=== PATIENT | female | born 1990 | race Caucasian/White ===

== ENCOUNTER → 2016-11-08 | Outpatient (CLI) | payer OTHER | LOC: M WUC 13:15 | PROVIDERS: ATTEND Obstetrics & Gynecology Obstetrics | DX: N97.9 Female infertility, unspecified (principal) ==

== ENCOUNTER → 2017-03-17 | Outpatient (CLI) | payer OTHER ==
[2017-03-17 10:44] LABS: PROGESTERONE 18.5 NG/ML; PROLACTIN 8.7 NG/ML
[2017-03-17 10:45] LABS: FOLLICLE STIMULATING HORMONE 3.2 mIU/mL
== END ==
LOC: M WUC 08:10
PROVIDERS: ATTEND Obstetrics & Gynecology
DX: N97.9 Female infertility, unspecified (principal)

== ENCOUNTER → 2017-03-27 | Outpatient (CLI) | payer OTHER | LOC: M WUC 08:42 | PROVIDERS: ATTEND Obstetrics & Gynecology | DX: N97.9 Female infertility, unspecified (principal) ==

== ENCOUNTER → 2017-03-30 | Outpatient (CLI) | payer OTHER ==
--- NOTE | 2017-03-31 06:22 | REP ---
Clinical: Infertility . Technique: Transabdominal pelvic ultrasound followed by transvaginal examination for better evaluation of the endometrium and adnexa. Findings: Bladder is unremarkable and measures 13.8 x 8.4 x 10.9 cm . Bicornuate uterus measures 6.8 x 3.0 x 3.4 cm. The right and left endometrial complex both measures 3.0 mm thickness. No discrete uterine or endometrial abnormalities are appreciated. Bilateral ovaries are normal in appearance and and demonstrate multiple sub centimeter follicles. Right ovary measures 3.7 x 2.3 x 4.0 cm. Left ovary measures 4.1 x 2.2 x 3.4 cm. No pelvic fluid or adnexal mass lesion . Impression: 1. bicornuate uterus without further discrete abnormality. 2. Normal appearance of the bilateral ovaries with multiple bilateral sub centimeter follicles. Signed by Florentin Mccray MD 03/31/2017 06:14 A
== END ==
LOC: M RAD 10:22
PROVIDERS: ATTEND Obstetrics & Gynecology
DX: N97.9 Female infertility, unspecified (principal)

== ENCOUNTER → 2017-05-05 | Outpatient (CLI) | payer OTHER ==
[2017-05-05 17:15] LABS: PROGESTERONE 9.4 NG/ML
[2017-05-05 17:16] LABS: ESTRADIOL 102.2 PG/ML
--- NOTE | 2017-05-05 18:37 | REP ---
MRI abdomen without contrast: History: Congenital uterine anomaly. Technique: Axial and coronal imaging planes are utilized. Sequences include true FISP, turbo spin-echo, spin echo. MRI findings: There is no evidence of ascites. The liver and spleen are normal in size homogeneous in texture. The gallbladder is unremarkable. There is a moderate amount of stool and gas in the large bowel. No retroperitoneal mass or adenopathy is seen. A normal left kidney is seen. The right kidney is absent. There is evidence of compensatory enlargement of the left kidney which measures 13.1 cm in length. No hydronephrosis or mass is seen. No ascites seen. Impression: Unilateral left kidney with compensatory hypertrophy. Right kidney is absent. Signed by Maynor Lanier MD 05/06/2017 02:13 P
--- NOTE | 2017-05-09 09:44 | REP ---
Clinical: Evaluate for congenital uterine anomaly. Correlation: Hysterosalpingogram performed 12/20/2016. Technique: Noncontrast multiplanar T2 weighted sequences through the pelvis. 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 The visualized vaginal cuff and cervix appears normal. The relatively normal appearing left uterine horn measures approximately 7.9 x 3.9 x 3.3 cm with normal appearance the myometrium, junctional zone and endometrium. The noncommunicating horn in the right fabiano pelvis measures approximately 3.1 cm diameter and there may be a small amount of poorly definable myometrium extending to the midline and left uterine horn. Normal right ovary contains multiple small follicles measuring up to 8 mm diameter. Left ovary includes multiple follicles as well as 2.4 cm hemorrhagic cyst and dominant follicle measuring 1.5 cm diameter. No pelvic fluid or obvious mass lesion is appreciated. Visualized portions of the small and large bowel are unremarkable. Visualized musculoskeletal structures and vasculature appears relatively symmetric and normal. Impression: 1. 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 2. Relatively normal bilateral ovaries with 2.4 cm left hemorrhagic cyst and 1.4 cm left dominant follicle. Signed by Florentin Mccray MD 05/09/2017 09:35 A
== END ==
LOC: M LAB 16:10
PROVIDERS: ATTEND Obstetrics & Gynecology Reproductive Endocrinology
DX: N97.9 Female infertility, unspecified (principal)

== ENCOUNTER → 2017-06-17 | Outpatient (CLI) | payer OTHER ==
--- NOTE | 2017-06-17 09:32 | REP ---
TRANSVAGINAL PELVIC ULTRASOUND, FOLLICLE STUDY: Real-time sonographic evaluation of the pelvis performed utilizing transabdominal technique. The uterus has a bicornuate configuration. Right horn measures 3.4 x 2.8 x 2.8 cm. Left horn measures 6.9 x 2.5 x 3.6 cm. Right sided endometrium measures 6 mm and left 7 mm with no endometrial fluid collection. Right ovary measures 4.3 x 3.1 x 2.1 cm. There are multiple subcentimeter follicles seen. Left ovary measures 3.4 x 1.9 x 3.2 cm. There are multiple subcentimeter follicles seen in the left ovary. No follicles are seen in either ovary that are greater than 1 cm in maximum diameter. Signed by Renzo Evans MD 06/20/2017 09:45 A
[2017-06-17 09:47] LABS: HCG, SERUM QUANTITATIVE < 1.0 MIU/ML
[2017-06-17 10:38] LABS: ESTRADIOL 51.1 PG/ML
== END ==
LOC: M RAD 07:51 → M LAB 07:51
PROVIDERS: ATTEND Obstetrics & Gynecology Reproductive Endocrinology
DX: N97.9 Female infertility, unspecified (principal)

== ENCOUNTER → 2017-07-14 | Outpatient (CLI) | payer OTHER ==
--- NOTE | 2017-07-14 08:27 | REP ---
Clinical: Infertility. Comparison: 06/27/2017. Technique: Evans scale transvaginal ultrasound examination. 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 Uterus measures 7.2 x 3.2 x 4.2 cm and the endometrial complex measures 6.3 mm thickness trace endocervical fluid noted. The noncommunicating right cornua measures approximately 3.9 x 3.9 x 3.5 cm without discernible endometrial stripe. Right ovary measures 4.3 x 3.0 x 3.9 cm and includes 17 mm hemorrhagic follicle and approximately 33 sub centimeter follicles. Left ovary measures 5.1 x 2.0 x 3.1 cm and includes 11 mm follicle and approximately 33 sub centimeter follicles. Impression: Predominately sub centimeter follicles as noted above. Signed by Florentin Mccray MD 07/14/2017 08:19 A
[2017-07-14 09:12] LABS: HCG, SERUM QUANTITATIVE < 1.0 MIU/ML
[2017-07-14 10:31] LABS: ESTRADIOL 93.5 PG/ML
== END ==
LOC: M RAD 07:22
PROVIDERS: ATTEND Obstetrics & Gynecology Reproductive Endocrinology
DX: N97.9 Female infertility, unspecified (principal)

== ENCOUNTER → 2017-07-20 | Outpatient (CLI) | payer OTHER ==
--- NOTE | 2017-07-20 09:28 | REP ---
Transvaginal pelvic sonography: History: Follicle study. Infertility. Findings: The patient has a known biliary duct abnormality with unicornuate left uterus and rudimentary noncommunicating right horn. This rudimentary right horn measures 4.0 x 3.5 x 3.6 cm. The left uterine moiety measures 6.9 x 2.8 x 3.4 cm. Endometrial stripe is 0.5 cm. There is a trace of fluid the cul-de-sac. No focal uterine mass is seen. Overall dimensions of the right ovary today are 4.9 x 2.8 x 2.7 cm. Right ovary contains five follicles measuring over a centimeter as follows: 1.3 x 0.8, 1.2 x 0.7, 1.3 x 0.8, 1.2 x 0.7, and 1.2 x 0.9 cm. In addition, the right ovary contains 16 follicles ranging in size between 0.3 and 0.8 cm. The overall dimensions of the left ovary today are 4.7 x 2.6 x 3.5 cm. The left ovary has five follicles over a centimeter measured as follows: 1.1 x 0.8, 1.2 x 1.1, 1.0 x 0.8, 1.1 x 0.9, and 1.2 x 0.8 cm. In addition, the left ovary contains 13 follicles ranging in size from 0.4 to 0.9 cm. Impression: Ovarian follicle study as above. 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 Signed by Maynor Lanier MD 07/20/2017 10:12 A
[2017-07-20 09:54] LABS: ESTRADIOL 460.6 PG/ML; LUTEINIZING HORMONE 7.4 mIU/mL
== END ==
LOC: M RAD 06:21
PROVIDERS: ATTEND Obstetrics & Gynecology Reproductive Endocrinology
DX: N97.9 Female infertility, unspecified (principal)

== ENCOUNTER → 2017-07-26 | Outpatient (CLI) | payer OTHER ==
[2017-07-26 17:26] LABS: ESTRADIOL 858.9 PG/ML; LUTEINIZING HORMONE 31.1 mIU/mL; PROGESTERONE 1.4 NG/ML
== END ==
LOC: M WUC 15:11
PROVIDERS: ATTEND Obstetrics & Gynecology Reproductive Endocrinology
DX: N97.9 Female infertility, unspecified (principal)

== ENCOUNTER → 2017-08-11 | Outpatient (CLI) | payer OTHER ==
[2017-08-11 09:34] LABS: HCG, SERUM QUANTITATIVE < 1.0 MIU/ML
[2017-08-11 09:40] LABS: ESTRADIOL 58.4 PG/ML
--- NOTE | 2017-08-11 10:00 | REP ---
Transvaginal pelvic sonography: Infertility study. Findings: Unicornuate uterine anomaly is seen with a rudimentary right uterine horn as before. Uterine dimensions are 7.4 x 2.9 x 3.2 cm. The noncommunicating right rudimentary horn measures 3.3 x 3.1 x 3.9 cm. Unicornuate left uterine endometrial stripe is 0.7 cm thick. No focal uterine mass is seen. The right ovary has overall dimensions of 3.9 x 3.2 x 2.5 cm today. There are no follicles over a centimeter in the right ovary. There are 38 follicles ranging in size from 0.2-0.9 cm. The overall dimensions of the left ovary today are 3.4 x 2.2 x 2.5 cm. There are 26 follicles in the left ovary ranging in size from 0.3-0.8 centimeters. There is a 1.0 x 0.5 cm follicle in the left ovary. No free fluid. Impression: Follicle study as above. Uterine anomaly as previously noted. Signed by Maynor Lanier MD 08/11/2017 10:57 A
== END ==
LOC: M RAD 08:34
PROVIDERS: ATTEND Obstetrics & Gynecology Reproductive Endocrinology
DX: N97.9 Female infertility, unspecified (principal)

== ENCOUNTER → 2017-08-24 | Outpatient (CLI) | payer OTHER ==
[2017-08-24 10:27] LABS: ESTRADIOL 219.4 PG/ML
[2017-08-24 10:27] LABS: LUTEINIZING HORMONE 17.2 mIU/mL
== END ==
LOC: M RAD 08:56
DX: N97.9 Female infertility, unspecified (principal)

== ENCOUNTER 2017-08-25 10:47 | Emergency (ER) | payer OTHER ==
[2017-08-25] MEDS: KETOROLAC 60 MG/2 ML VIAL (J1885) IM (12:09)
== END 2017-08-25 12:29 | disposition home or self-care (01) ==
LOC: M ED 10:47
DX: M94.0 Chondrocostal junction syndrome [Tietze] (principal); R82.90 Unspecified abnormal findings in urine; Q60.0 Renal agenesis, unilateral; Z79.890 Hormone replacement therapy
CPT/HCPCS: J1885

== ENCOUNTER → 2017-08-26 | Outpatient (CLI) | payer OTHER ==
[2017-08-26 09:34] LABS: ESTRADIOL 289.2 PG/ML
[2017-08-26 09:34] LABS: PROGESTERONE 42.1 NG/ML
== END ==
LOC: M LAB 08:26
DX: N97.9 Female infertility, unspecified (principal)
CPT/HCPCS: 83002

== ENCOUNTER → 2017-09-29 | Outpatient (CLI) | payer OTHER ==
[2017-09-29 09:21] LABS: HEMATOCRIT 38.7 % (36.0-47.0); HEMOGLOBIN 13.4 g/dl (12.0-16.0); MEAN CORPUSCULAR HGB CONC 34.6 g/dl (32.0-36.5); MEAN CORPUSCULAR VOLUME 92.4 fl (80.0-96.0); PLATELET COUNT, AUTOMATED 188 10^3/uL (150-450); RED BLOOD COUNT 4.19 10^6/uL (4.00-5.40); RED CELL DISTRIBUTION WIDTH 12.2 % (11.5-14.5); WHITE BLOOD COUNT 3.6 10^3/uL (4.0-10.0)
[2017-09-29 10:10] LABS: PROGESTERONE 0.2 NG/ML
[2017-09-29 10:11] LABS: ESTRADIOL < 19.0 PG/ML
== END ==
LOC: M RAD 08:17
DX: N97.9 Female infertility, unspecified (principal)

== ENCOUNTER → 2017-10-03 | Outpatient (CLI) | payer OTHER ==
[2017-10-03 11:26] LABS: ESTRADIOL 100.4 PG/ML
== END ==
LOC: M RAD 09:51
DX: N97.9 Female infertility, unspecified (principal)

== ENCOUNTER → 2017-10-05 | Outpatient (CLI) | payer OTHER ==
[2017-10-05 09:30] LABS: ESTRADIOL 368.8 PG/ML
== END ==
LOC: M RAD 07:26
DX: N97.9 Female infertility, unspecified (principal)
CPT/HCPCS: 76830

== ENCOUNTER → 2017-10-07 | Outpatient (CLI) | payer OTHER ==
[2017-10-07 13:11] LABS: ESTRADIOL 702.4 PG/ML
== END ==
LOC: M RAD 10:37
DX: N97.9 Female infertility, unspecified (principal)
CPT/HCPCS: 76830

== ENCOUNTER → 2017-10-10 | Outpatient (CLI) | payer OTHER ==
[2017-10-10 09:39] LABS: ESTRADIOL 2156.7 PG/ML
== END ==
LOC: M LAB 08:27
DX: N97.9 Female infertility, unspecified (principal); N83.01 Follicular cyst of right ovary; N83.02 Follicular cyst of left ovary
CPT/HCPCS: 76830

== ENCOUNTER → 2017-10-12 | Outpatient (CLI) | payer OTHER ==
[2017-10-12 08:27] LABS: HCG, SERUM QUANTITATIVE 144 MIU/ML
== END ==
LOC: M LAB 07:44
DX: N97.9 Female infertility, unspecified (principal)

== ENCOUNTER → 2017-10-20 | Outpatient (CLI) | payer OTHER ==
[2017-10-20 09:38] LABS: ESTRADIOL 1618.8 PG/ML
== END ==
LOC: M LAB 07:51
DX: Z32.00 Encounter for pregnancy test, result unknown (principal)

== ENCOUNTER → 2017-10-28 | Outpatient (CLI) | payer OTHER ==
[2017-10-28 09:11] LABS: HCG, SERUM QUANTITATIVE 14 MIU/ML
== END ==
LOC: M LAB 08:07
DX: Z32.00 Encounter for pregnancy test, result unknown (principal)

== ENCOUNTER → 2017-10-31 | Outpatient (CLI) | payer OTHER ==
[2017-10-31 08:39] LABS: HCG, SERUM QUANTITATIVE 6 MIU/ML
== END ==
LOC: M LAB 07:43
DX: Z32.00 Encounter for pregnancy test, result unknown (principal)

== ENCOUNTER → 2017-11-03 | Outpatient (CLI) | payer OTHER ==
[2017-11-03 08:50] LABS: HCG, SERUM QUANTITATIVE 2 MIU/ML
== END ==
LOC: M LAB 07:57
DX: Z32.00 Encounter for pregnancy test, result unknown (principal)
CPT/HCPCS: 84702

== ENCOUNTER → 2017-11-24 | Outpatient (CLI) | payer OTHER ==
[2017-11-24 10:18] LABS: PROGESTERONE 0.4 NG/ML
[2017-11-24 10:18] LABS: ESTRADIOL < 19.0 PG/ML
== END ==
LOC: M LAB 08:04
DX: N97.9 Female infertility, unspecified (principal)
CPT/HCPCS: 84144

== ENCOUNTER → 2017-12-26 | Outpatient (CLI) | payer OTHER ==
[2017-12-26 09:13] LABS: HCG, SERUM QUANTITATIVE < 1.0 MIU/ML
== END ==
LOC: M LAB 08:25
DX: N97.9 Female infertility, unspecified (principal)

== ENCOUNTER → 2018-01-09 | Outpatient (CLI) | payer OTHER ==
[2018-01-09 17:35] LABS: HCG, SERUM QUANTITATIVE < 1.0 MIU/ML
== END ==
LOC: M WUC 16:05
DX: Z32.00 Encounter for pregnancy test, result unknown (principal)

== ENCOUNTER → 2018-01-12 | Outpatient (CLI) | payer OTHER ==
[2018-01-12 10:33] LABS: PROGESTERONE 0.7 NG/ML
[2018-01-12 10:34] LABS: ESTRADIOL 486.5 PG/ML
== END ==
LOC: M SMT 08:14
DX: N97.9 Female infertility, unspecified (principal); N83.02 Follicular cyst of left ovary
CPT/HCPCS: 83002

== ENCOUNTER → 2018-01-30 | Outpatient (CLI) | payer OTHER ==
[2018-01-30 08:27] LABS: HCG, SERUM QUANTITATIVE < 1.0 MIU/ML
== END ==
LOC: M LAB 07:36
DX: Z32.00 Encounter for pregnancy test, result unknown (principal)
CPT/HCPCS: 84702

== ENCOUNTER → 2018-03-23 | Outpatient (CLI) | payer OTHER ==
[2018-03-23 14:43] LABS: HCG, SERUM QUANTITATIVE < 1.0 MIU/ML
== END ==
LOC: M WUC 12:48
DX: Z32.00 Encounter for pregnancy test, result unknown (principal)
CPT/HCPCS: 84702

== ENCOUNTER → 2018-04-20 | Outpatient (CLI) | payer OTHER ==
[2018-04-20 11:46] LABS: PROGESTERONE 0.5 NG/ML
[2018-04-20 11:46] LABS: ESTRADIOL < 19.0 PG/ML
== END ==
LOC: M LAB 06:43
DX: N97.9 Female infertility, unspecified (principal)
CPT/HCPCS: 84144

== ENCOUNTER → 2018-05-18 | Outpatient (CLI) | payer OTHER ==
[2018-05-18 14:45] LABS: HCG, SERUM QUANTITATIVE < 1.0 MIU/ML
== END ==
LOC: M WUC 13:12
DX: N97.9 Female infertility, unspecified (principal)
CPT/HCPCS: 84702

== ENCOUNTER → 2018-06-22 | Outpatient (CLI) | payer OTHER ==
[2018-06-22 10:37] LABS: PROGESTERONE 0.5 NG/ML
[2018-06-22 10:37] LABS: ESTRADIOL < 19.0 PG/ML
== END ==
LOC: M WUC 08:04
DX: N97.9 Female infertility, unspecified (principal)
CPT/HCPCS: 84144

== ENCOUNTER → 2018-07-24 | Outpatient (CLI) | payer OTHER ==
[2018-07-24 09:31] LABS: HCG, SERUM QUANTITATIVE < 1.0 MIU/ML
== END ==
LOC: M LAB 08:44
DX: Z32.00 Encounter for pregnancy test, result unknown (principal)
CPT/HCPCS: 84702

== ENCOUNTER → 2018-09-25 | Outpatient (CLI) | payer OTHER ==
[~2018-09-25] MED LIST: LEVO137T2 PO
[2018-09-25 09:44] LABS: ESTRADIOL < 19.0 PG/ML; PROGESTERONE 0.35 NG/ML
== END ==
LOC: M WUC 08:24
PROVIDERS: ATTEND Obstetrics & Gynecology Reproductive Endocrinology
DX: Z31.41 Encounter for fertility testing (principal)

== ENCOUNTER → 2018-10-27 | Outpatient (CLI) | payer OTHER | LOC: M WUC 08:18 | PROVIDERS: ATTEND Obstetrics & Gynecology Reproductive Endocrinology | DX: Z32.00 Encounter for pregnancy test, result unknown (principal) ==

== ENCOUNTER → 2018-10-30 | Outpatient (CLI) | payer OTHER ==
[2018-10-30 10:59] LABS: THYROID STIMULATING HORMONE 4.7 uIU/ML (0.358-3.740)
== END ==
LOC: M WUC 08:17
PROVIDERS: ATTEND Obstetrics & Gynecology Reproductive Endocrinology
DX: Z32.00 Encounter for pregnancy test, result unknown (principal)

== ENCOUNTER → 2018-11-01 | Outpatient (CLI) | payer OTHER | LOC: M WUC 08:03 | PROVIDERS: ATTEND Obstetrics & Gynecology Reproductive Endocrinology | DX: Z32.00 Encounter for pregnancy test, result unknown (principal) ==

== ENCOUNTER → 2018-11-08 | Outpatient (CLI) | payer OTHER | LOC: M WUC 08:12 | PROVIDERS: ATTEND Obstetrics & Gynecology Reproductive Endocrinology | DX: Z32.00 Encounter for pregnancy test, result unknown (principal); Z3A.00 Weeks of gestation of pregnancy not specified ==

== ENCOUNTER → 2019-01-01 | Outpatient (CLI) | payer OTHER | LOC: M LAB 09:47 | PROVIDERS: ATTEND Obstetrics & Gynecology Reproductive Endocrinology | DX: Z32.00 Encounter for pregnancy test, result unknown (principal); Z3A.00 Weeks of gestation of pregnancy not specified ==

== ENCOUNTER → 2019-01-29 | Outpatient (CLI) | payer OTHER ==
--- NOTE | 2019-01-29 09:24 | REP ---
TRANSVAGINAL PELVIC ULTRASOUND, FOLLICLE STUDY: Real-time sonographic evaluation of the pelvis was performed utilizing transvaginal technique. The uterus measures 6.7 x 2.7 x 3.2 cm. Endometrial thickness is 7 mm. Right ovary measures 3.0 x 1.8 x 3.0 cm. Multiple subcentimeter follicles are seen in the right ovary with no dominant follicle greater than the cm in diameter. Left ovary measures 3.1 x 2.0 x 2.5 cm. Multiple subcentimeter follicles are seen in the left ovary with no follicles greater than 1 cm in diameter. Electronically Signed by Renzo Evans MD 01/30/2019 11:49 A
== END ==
LOC: M RAD 07:27
PROVIDERS: ATTEND Obstetrics & Gynecology Reproductive Endocrinology
DX: N97.9 Female infertility, unspecified (principal)

== ENCOUNTER → 2019-01-30 | Outpatient (REF) | payer OTHER | LOC: M SFHCLERA 19:26 | PROVIDERS: ATTEND Physician Assistant | DX: N39.0 Urinary tract infection, site not specified (principal) ==

== ENCOUNTER → 2019-02-01 | Outpatient (CLI) | payer OTHER ==
--- NOTE | 2019-02-01 08:28 | REP ---
Clinical: Infertility. Technique: Transvaginal ultrasound examination. Findings: Normal anteverted uterus measures 7.4 x 2.7 x 3.5 cm. Endometrial stripe measures 7.9 mm thickness. Small amount of free fluid in the posterior cul-de-sac is noted. Right ovary measures 4.0 x 3.6 x 2.9 cm with 12 x 7.2 mm and 11.1 x 8.38 mm follicles along with approximately 24 sub centimeter follicles up to 8.1 mm. Left ovary measures 3.9 x 2.2 x 3.3 cm with 11.5 x 8.1 mm and 11.9 x 7.9 mm follicles along with approximately 23 sub centimeter follicles up to 9.9 mm. Impression: Bilateral predominately sub centimeter ovarian follicles. Normal appearance to the uterus and endometrium. Electronically Signed by Florentin Mccray MD 02/01/2019 08:19 A
== END ==
LOC: M RAD 07:01
PROVIDERS: ATTEND Obstetrics & Gynecology Reproductive Endocrinology
DX: N97.9 Female infertility, unspecified (principal)

== ENCOUNTER → 2019-05-19 | Outpatient (CLI) | payer OTHER | LOC: M LAB 09:28 | PROVIDERS: ATTEND Obstetrics & Gynecology Reproductive Endocrinology | DX: Z32.00 Encounter for pregnancy test, result unknown (principal) ==

== ENCOUNTER → 2019-05-21 | Outpatient (CLI) | payer OTHER ==
[2019-05-21 09:00] LABS: THYROID STIMULATING HORMONE 7.39 uIU/ML (0.358-3.740)
== END ==
LOC: M LAB 07:58
PROVIDERS: ATTEND Obstetrics & Gynecology Reproductive Endocrinology
DX: Z32.00 Encounter for pregnancy test, result unknown (principal)

== ENCOUNTER → 2019-05-23 | Outpatient (CLI) | payer OTHER | LOC: M WUC 08:03 | PROVIDERS: ATTEND Obstetrics & Gynecology Reproductive Endocrinology | DX: Z32.00 Encounter for pregnancy test, result unknown (principal) ==

== ENCOUNTER → 2019-05-24 | Outpatient (CLI) | payer OTHER ==
[~2019-05-24] MED LIST changes: +KEFL500C17 PO; +LEVO200T4 PO; +PREN29TA4 PO
== END ==
LOC: M LAB 07:48
PROVIDERS: ATTEND Obstetrics & Gynecology Reproductive Endocrinology
DX: Z32.00 Encounter for pregnancy test, result unknown (principal)

== ENCOUNTER → 2019-05-25 | Outpatient (CLI) | payer OTHER ==
[~2019-05-25] MED LIST changes: -KEFL500C17 PO; -LEVO200T4 PO; -PREN29TA4 PO
[2019-05-25 08:21] LABS: HEMATOCRIT 40.7 % (36.0-47.0); HEMOGLOBIN 14.1 g/dl (12.0-15.5); MEAN CORPUSCULAR HEMOGLOBIN 32.4 pg (27.0-33.0); MEAN CORPUSCULAR HGB CONC 34.6 g/dl (32.0-36.5); MEAN CORPUSCULAR VOLUME 93.6 fl (80.0-96.0); PLATELET COUNT, AUTOMATED 235 10^3/uL (150-450); RED BLOOD COUNT 4.35 10^6/uL (4.00-5.40); WHITE BLOOD COUNT 5.4 10^3/uL (4.0-10.0)
[2019-05-25 09:07] LABS: ALBUMIN 3.8 GM/DL (3.2-5.2); ALT/SGPT 32 U/L (12-78); BLOOD UREA NITROGEN 13 MG/DL (7-18); CALCIUM LEVEL 8.7 MG/DL (8.5-10.1); CARBON DIOXIDE LEVEL 27 MEQ/L (21-32); CHLORIDE LEVEL 107 MEQ/L (98-107); CREATININE FOR GFR 0.88 MG/DL (0.55-1.30); GLOMERULAR FILTRATION RATE > 60.0 (>60); GLUCOSE, FASTING 78 MG/DL (70-100); HCG, SERUM QUANTITATIVE 121 MIU/ML; SODIUM LEVEL 139 MEQ/L (136-145); TOTAL PROTEIN 7.4 GM/DL (6.4-8.2)
== END ==
LOC: M LAB 07:54
PROVIDERS: ATTEND Obstetrics & Gynecology Reproductive Endocrinology
DX: Z32.00 Encounter for pregnancy test, result unknown (principal)

== ENCOUNTER → 2019-06-02 | Outpatient (CLI) | payer OTHER | LOC: M LAB 08:50 | PROVIDERS: ATTEND Obstetrics & Gynecology Reproductive Endocrinology | DX: O26.90 Pregnancy related conditions, unspecified, unspecified trimester (principal) ==

== ENCOUNTER → 2019-06-05 | Outpatient (CLI) | payer OTHER | LOC: M LAB 07:56 | PROVIDERS: ATTEND Obstetrics & Gynecology Reproductive Endocrinology | DX: O26.90 Pregnancy related conditions, unspecified, unspecified trimester (principal) ==

== ENCOUNTER → 2019-06-12 | Outpatient (CLI) | payer OTHER | LOC: M LAB 07:40 | PROVIDERS: ATTEND Obstetrics & Gynecology Reproductive Endocrinology | DX: O26.90 Pregnancy related conditions, unspecified, unspecified trimester (principal); Z3A.00 Weeks of gestation of pregnancy not specified ==

== ENCOUNTER → 2019-06-19 | Outpatient (CLI) | payer OTHER | LOC: M LAB 07:48 | PROVIDERS: ATTEND Obstetrics & Gynecology Reproductive Endocrinology | DX: O26.90 Pregnancy related conditions, unspecified, unspecified trimester (principal); Z3A.00 Weeks of gestation of pregnancy not specified ==

== ENCOUNTER → 2019-06-26 | Outpatient (CLI) | payer OTHER | LOC: M LAB 07:46 | PROVIDERS: ATTEND Obstetrics & Gynecology Reproductive Endocrinology | DX: O26.90 Pregnancy related conditions, unspecified, unspecified trimester (principal); Z3A.00 Weeks of gestation of pregnancy not specified ==

== ENCOUNTER 2019-07-13 07:12 | Emergency (ER) | payer OTHER ==
[~2019-07-13] VITALS: Ht 162.6 cm; Wt 63.6 kg
[2019-07-13] MEDS ORDERED: ADACEL/BOOSTRIX VACCINE (DIPHTH/PERTUSS/ACELL/TETANUS)0.5ML SYR (90715) IM ONE (07:30)
[2019-07-13] MEDS ORDERED: LIDOCAINE 2% MDV 20 ML VIAL SC ONE (07:45)
[2019-07-13] MEDS ORDERED: KEFL500C17 PO (08:20)
[2019-07-13 08:26] VITALS: BP 110/70
[2019-07-13] MEDS ORDERED: NEOSPORIN TOP OINT 15GM TOP ONE (08:30)
== END 2019-07-13 08:38 | disposition home or self-care (01) ==
LOC: M ED 07:12
DX: S91.012A Laceration without foreign body, left ankle, initial encounter (principal); W25.XXXA Contact with sharp glass, initial encounter; Y92.098 Other place in other non-institutional residence as the place of occurrence of the external cause; Z79.899 Other long term (current) drug therapy

== ENCOUNTER → 2019-07-14 | Outpatient (CLI) | payer OTHER ==
[~2019-07-14] MED LIST changes: +KEFL500C17 PO
== END ==
LOC: M LAB 09:46
PROVIDERS: ATTEND Obstetrics & Gynecology Reproductive Endocrinology
DX: O26.90 Pregnancy related conditions, unspecified, unspecified trimester (principal); Z3A.00 Weeks of gestation of pregnancy not specified

== ENCOUNTER → 2019-08-16 | Outpatient (CLI) | payer OTHER | LOC: M LAB 08:33 | PROVIDERS: ATTEND Obstetrics & Gynecology Reproductive Endocrinology | DX: Z32.00 Encounter for pregnancy test, result unknown (principal) ==

== ENCOUNTER 2019-09-14 13:05 | Emergency (ER) | payer OTHER ==
[~2019-09-14] VITALS: Ht 165.1 cm; Wt 65.2 kg
[2019-09-14 13:05] VITALS: BP 125/64
[2019-09-14 14:18] LABS: BASO # 0.1 10^3/uL (0.0-0.2); BASO % 0.8 % (0.0-1.0); EOS # 0.1 10^3/uL (0.0-0.5); EOS % 1.2 % (0.0-3.0); HEMATOCRIT 40.3 % (36.0-47.0); HEMOGLOBIN 14.3 g/dl (12.0-15.5); LYMPH # 1.6 10^3/uL (1.5-5.0); LYMPH % 22.4 % (24.0-44.0); MEAN CORPUSCULAR HEMOGLOBIN 32.2 pg (27.0-33.0); MEAN CORPUSCULAR HGB CONC 35.5 g/dl (32.0-36.5); MEAN CORPUSCULAR VOLUME 90.8 fl (80.0-96.0); MONO # 0.4 10^3/uL (0.0-0.8); MONO % 5.3 % (0.0-5.0); NEUTROPHILS # 5.1 10^3/uL (1.5-8.5); PLATELET COUNT, AUTOMATED 242 10^3/uL (150-450); RED BLOOD COUNT 4.44 10^6/uL (4.00-5.40); WHITE BLOOD COUNT 7.3 10^3/uL (4.0-10.0)
[2019-09-14] MEDS ORDERED: PREN29TA4 PO (14:30)
[2019-09-14] MEDS ORDERED: LEVO200T4 PO (14:30)
[2019-09-14 15:05] LABS: BLOOD UREA NITROGEN 12 MG/DL (7-18); CALCIUM LEVEL 8.8 MG/DL (8.5-10.1); CARBON DIOXIDE LEVEL 23 MEQ/L (21-32); CHLORIDE LEVEL 106 MEQ/L (98-107); CREATININE FOR GFR 0.73 MG/DL (0.55-1.30); GLOMERULAR FILTRATION RATE > 60.0 (>60); GLUCOSE, FASTING 83 MG/DL (70-100); HCG, SERUM QUANTITATIVE 145315 MIU/ML; POTASSIUM SERUM 4.2 MEQ/L (3.5-5.1); SODIUM LEVEL 137 MEQ/L (136-145)
--- NOTE | 2019-09-14 16:43 | REP ---
OB ULTRASOUND: Real-time sonographic evaluation of the gravid uterus is performed. There is a single living intrauterine gestation. Estimated gestational age is 9 weeks 2 days based on a crown rump length of 25 mm, EDC 04/16/2020. heart rate is 175 beats per minute. The gestational sac and fetus are located in the left uterine horn of a bicornuate uterus. The right uterine horn is reportedly noncommunicating and rudimentary. There is no evidence of ovarian torsion with duplex Doppler evaluation. There is a cystic structure in the left ovary 2.2 cm in diameter, most consistent with a corpus luteum. There is no subchorionic hemorrhage. Electronically Signed by Renzo Evans MD 09/19/2019 09:47 A
== END 2019-09-14 17:27 | disposition home or self-care (01) ==
LOC: M ED 13:05
DX: O20.9 Hemorrhage in early pregnancy, unspecified (principal); Z3A.09 9 weeks gestation of pregnancy; O26.891 Other specified pregnancy related conditions, first trimester; N83.12 Corpus luteum cyst of left ovary; Z79.899 Other long term (current) drug therapy; N96 Recurrent pregnancy loss

== ENCOUNTER → 2019-09-21 | Outpatient (CLI) | payer OTHER ==
[~2019-09-21] MED LIST changes: +LEVO200T4 PO; +PREN29TA4 PO
[2019-09-21 17:27] LABS: BASO % 0.5 % (0.0-1.0); EOS # 0.1 10^3/uL (0.0-0.5); EOS % 0.9 % (0.0-3.0); HEMATOCRIT 38.9 % (36.0-47.0); HEMOGLOBIN 13.7 g/dl (12.0-15.5); LYMPH # 1.5 10^3/uL (1.5-5.0); LYMPH % 23.6 % (24.0-44.0); MEAN CORPUSCULAR HGB CONC 35.2 g/dl (32.0-36.5); MEAN CORPUSCULAR VOLUME 90.9 fl (80.0-96.0); MONO # 0.4 10^3/uL (0.0-0.8); MONO % 5.4 % (0.0-5.0); NEUTROPHILS # 4.5 10^3/uL (1.5-8.5); NEUTROPHILS % 69.3 % (36.0-66.0); PLATELET COUNT, AUTOMATED 228 10^3/uL (150-450); RED BLOOD COUNT 4.28 10^6/uL (4.00-5.40); WHITE BLOOD COUNT 6.5 10^3/uL (4.0-10.0)
[2019-09-21 17:38] LABS: ALT/SGPT 20 U/L (12-78); BILIRUBIN,TOTAL 0.7 MG/DL (0.2-1.0); BLOOD UREA NITROGEN 14 MG/DL (7-18); CALCIUM LEVEL 8.6 MG/DL (8.5-10.1); CARBON DIOXIDE LEVEL 27 MEQ/L (21-32); CHLORIDE LEVEL 107 MEQ/L (98-107); CREATININE FOR GFR 0.66 MG/DL (0.55-1.30); FREE T4 1.94 NG/DL (0.76-1.46); GLOMERULAR FILTRATION RATE > 60.0 (>60); GLUCOSE, FASTING 70 MG/DL (70-100); LDH LACTATE DEHYDROGENASE 116 U/L (84-246); POTASSIUM SERUM 4.2 MEQ/L (3.5-5.1); SODIUM LEVEL 138 MEQ/L (136-145); URIC ACID 3.4 MG/DL (2.6-6.0)
[2019-09-21 18:03] LABS: CREATININE,RANDOM URINE 57.1 MG/DL; TOTAL PROTEIN,RANDOM URINE 9.7 MG/DL (0.0-12.0)
[2019-09-21 18:19] LABS: HIV 1&2 SCREEN CENTAUR NEGATIVE (NEGATIVE)
[2019-09-21 19:04] LABS: CHLAMYDIA DNA AMPLIFICATION NEGATIVE (NEGATIVE); GC DNA AMPLIFICATION NEGATIVE (NEGATIVE)
[2019-09-24 11:14] LABS: RUBELLA IgG QUALITATIVE IMMUNE (IMMUNE)
[2019-09-24 11:43] LABS: HEPATITIS C VIRUS ABY INDEX < 0.0 INDEX (<0.8)
== END ==
LOC: M PLALAB 12:35
PROVIDERS: ATTEND Advanced Practice Midwife
DX: O34.591 Maternal care for other abnormalities of gravid uterus, first trimester (principal); Q60.2 Renal agenesis, unspecified; O99.280 Endocrine, nutritional and metabolic diseases complicating pregnancy, unspecified trimester

== ENCOUNTER → 2019-10-01 | Outpatient (CLI) | payer OTHER | LOC: M PLALAB 12:27 | PROVIDERS: ATTEND Advanced Practice Midwife | DX: Z34.81 Encounter for supervision of other normal pregnancy, first trimester (principal) ==

== ENCOUNTER → 2019-10-23 | Outpatient (REF) | payer OTHER | LOC: M LAB REF 20:26 → M LAB 20:26 | PROVIDERS: ATTEND Physician Assistant | DX: R30.0 Dysuria (principal) ==

== ENCOUNTER → 2019-11-07 | Outpatient (REF) | payer OTHER | LOC: M SFHCWAGY 13:33 | PROVIDERS: ATTEND Advanced Practice Midwife | DX: R30.0 Dysuria (principal) ==

== ENCOUNTER → 2019-11-09 | Outpatient (CLI) | payer OTHER ==
--- NOTE | 2019-11-09 10:40 | REP ---
OBSTETRIC SONOGRAPHY: HISTORY: Supervision of for anatomy. FINDINGS: Scanning through the gravid uterus demonstrates a viable single intrauterine gestation in a variable lie. motion is observed and heart rate is recorded at 150 beats per minute. The placenta is left lateral grade 1 without evidence of previa. Amniotic fluid is subjectively normal. Closed cervical length measures 3.1 cm, viewed transabdominally. There is a small left ovarian cyst consistent with corpus luteum. There has been appropriate interval growth. The patient has a history of a unicornuate left uterus with noncommunicating rudimentary right uterine horn. The is in the left uterus. There is a 5 mm left-sided choroid plexus cyst. No other abnormality is observed. The following anatomic structures are identified and felt to be sonographically unremarkable: cranium, choroid plexus, cavum, cerebellum and posterior fossa, nuchal fold, face and profile, four-chamber heart with left and right ventricular outflow tract views, diaphragm, left-sided stomach, abdominal wall cord insertion, three-vessel cord, kidneys and bladder, spine, upper and lower extremities. Biometry Chart: BPD 4.0 cm = 18 weeks 1 day HC 14.8 cm = 17 weeks 6 days AC 12.3 cm = 18 weeks 0 days FL 2.6 cm = 17 weeks 5 days HL 2.3 cm = 17 weeks 0 days HC/AC ratio normal 1.2. Cephalic index normal 0.75. Estimated weight 214 grams, 0 pounds 7 ounces, 38 percentile for 18 weeks 1 day. IMPRESSION: Viable single intrauterine gestation at 17 weeks 5 days by today's composite sonographic criteria. Expected gestational age estimate based on prior sonography is 18 weeks 1 day. ALLEN by prior sonography April 10, 2020. Small left choroid plexus cyst seen.
== END ==
LOC: M WHC 08:47
PROVIDERS: ATTEND Advanced Practice Midwife
DX: Z34.82 Encounter for supervision of other normal pregnancy, second trimester (principal)

== ENCOUNTER → 2019-11-13 | Outpatient (REF) | payer OTHER ==
[2019-11-13 18:15] LABS: FREE T4 1.42 NG/DL (0.76-1.46); THYROID STIMULATING HORMONE 1.54 uIU/ML (0.358-3.740)
== END ==
LOC: M PLALAB 13:53
PROVIDERS: ATTEND Advanced Practice Midwife
DX: O99.280 Endocrine, nutritional and metabolic diseases complicating pregnancy, unspecified trimester (principal)

== ENCOUNTER → 2020-01-10 | Outpatient (REF) | payer OTHER ==
[2020-01-10 18:33] LABS: HEMATOCRIT 36.6 % (36.0-47.0); HEMOGLOBIN 12.9 g/dl (12.0-15.5); MEAN CORPUSCULAR HEMOGLOBIN 33.4 pg (27.0-33.0); MEAN CORPUSCULAR HGB CONC 35.2 g/dl (32.0-36.5); MEAN CORPUSCULAR VOLUME 94.8 fl (80.0-96.0); PLATELET COUNT, AUTOMATED 225 10^3/uL (150-450); RED BLOOD COUNT 3.86 10^6/uL (4.00-5.40); WHITE BLOOD COUNT 9.8 10^3/uL (4.0-10.0)
[2020-01-10 19:08] LABS: FREE T4 1.35 NG/DL (0.76-1.46); THYROID STIMULATING HORMONE 3.43 uIU/ML (0.358-3.740)
== END ==
LOC: M PLALAB 14:51
PROVIDERS: ATTEND Advanced Practice Midwife
DX: Z34.83 Encounter for supervision of other normal pregnancy, third trimester (principal)

== ENCOUNTER → 2020-01-17 | Outpatient (CLI) | payer OTHER | LOC: M LAB 07:53 | PROVIDERS: ATTEND Advanced Practice Midwife | DX: Z34.82 Encounter for supervision of other normal pregnancy, second trimester (principal); Z36.89 Encounter for other specified antenatal screening ==

== ENCOUNTER → 2020-02-11 | Outpatient (CLI) | payer OTHER ==
--- NOTE | 2020-02-14 08:45 | REP ---
Clinical: Anatomical evaluation. Comparison: 11/09/2019 . Findings: Examination demonstrates a single live intrauterine in cephalic presentation. motion is identified by technologist. Placenta is noted posterior/left lateral and grade I I without evidence for placenta previa or abruption. Amniotic fluid volume is normal. Cervix measures 3.4 cm in length and appears closed. No evidence for nuchal cord. The patient is known to have unicornuate uterus with rudimentary atrophic right cornua and developing within the normal left cornua. Gestational age by LMP 31 weeks 4 days with ALLEN 04/10/2020 . Gestational age by current measurements 30 weeks 3 days with ALLEN see 04/18/2020 . FHR equals 142 beats per minute. BPD 8.1 cm 32 weeks 4 days HC 28.2 cm 30 weeks 6 days AC 25.8 cm 29 weeks 6 days FL 5.8 cm 30 weeks 3 days HL 5.3 cm 30 weeks 5 days HC/AC ratio 1.10 Estimated weight 1564 grams ( 20th percentile). Amniotic fluid index: 14.1 cm (8.7 - 24.0). Impression: 1. Single live intrauterine in cephalic presentation demonstrating appropriate estimated weight and growth interval.
== END ==
LOC: M WHC 14:57
PROVIDERS: ATTEND Specialist
DX: Z36.2 Encounter for other antenatal screening follow-up (principal); Z3A.31 31 weeks gestation of pregnancy

== ENCOUNTER → 2020-02-21 | Outpatient (REF) | payer OTHER ==
[2020-02-21 14:45] LABS: FREE T4 1.33 NG/DL (0.76-1.46); THYROID STIMULATING HORMONE 5.05 uIU/ML (0.358-3.740)
== END ==
LOC: M PLALAB 12:21
PROVIDERS: ATTEND Advanced Practice Midwife
DX: O99.280 Endocrine, nutritional and metabolic diseases complicating pregnancy, unspecified trimester (principal)

== ENCOUNTER 2020-02-22 08:29 | Inpatient (IN) | payer OTHER ==
[2020-03-23] MEDS ORDERED: OXYTOCIN 30 UNITS IN 0.9% NaCl 500ML IV BAG (J2590) ONE (08:43)
[2020-03-23] MEDS ORDERED: LIDOCAINE 1% MDV 20ML VIAL ONE (12:33)
[2020-03-23] MEDS ORDERED: LIDOCAINE 1% MDV 20ML VIAL As Ordered ONE (12:33)
[2020-03-24] MEDS ORDERED: PRENATAL VITAMINS CHEWABLE TABLET As Ordered ONE ×2 (08:03→09:40)
[2020-03-24] MEDS ORDERED: PRENATAL VITAMINS CHEWABLE TABLET ONE (09:40)
[2020-03-25] MEDS ORDERED: LEVOTHYROXINE 100MCG TABLET (0.1MG) As Ordered ONE ×2 (05:05→05:07)
[2020-03-25] MEDS ORDERED: LEVOTHYROXINE 100MCG TABLET (0.1MG) ONE (05:07)
[2020-03-25] MEDS ORDERED: PRENATAL VITAMINS CHEWABLE TABLET ONE (05:07)
[2020-03-25] MEDS ORDERED: PRENATAL VITAMINS CHEWABLE TABLET As Ordered ONE (08:39)
== END 2020-03-25 11:15 | disposition home or self-care (01) | DRG 807 ==
LOC: M LDI 08:29 → UNDOADMIN 08:29 → M LDI 03-23 08:29 → UNDODISIN 03-25 11:15
PROVIDERS: ADMIT Advanced Practice Midwife; ATTEND Advanced Practice Midwife
PROC: 10E0XZZ Delivery of Products of Conception, External Approach (ICD-10-PCS; principal; 2020-03-23)
PROC: 0HQ9XZZ Repair Perineum Skin, External Approach (ICD-10-PCS; 2020-03-23)
DX: O99.284 Endocrine, nutritional and metabolic diseases complicating childbirth (principal); Z37.0 Single live birth; O70.0 First degree perineal laceration during delivery; Z3A.37 37 weeks gestation of pregnancy

== ENCOUNTER → 2020-03-13 | Outpatient (CLI) | payer OTHER ==
--- NOTE | 2020-03-13 23:32 | REP ---
The exam was specifically ordered for growth. Limited OB ultrasound shows a single living intrauterine gestation in the cephalic presentation. Doppler interrogation of the heart shows a heart rate of 136 beats per minute. The placenta is anterior and not low lying. The subjective amniotic fluid volume is within normal limits. The cervix measures 3.7 cm in length and is closed. CHART: BPD 9.2 cm = 37 weeks 2 days HC 30.5 cm = 34 weeks 0 days AC 31.6 cm = 35 weeks 4 days FL 6.9 cm = 35 weeks 3 days The estimated weight is 2601 grams, which is at the 36th percentile for a 36-week 0-day gestational age. The calculated amniotic fluid index is 12.8 with an expected range 7.7 to 24.9. IMPRESSION: Single living intrauterine gestation, as described above, with an estimated gestational age of 34 weeks 2 days via composite criteria and an estimated date of delivery of 04/22/2020 by today's exam. No other significant changes are seen when compared to the prior exam.
== END ==
LOC: M WHC 14:19
PROVIDERS: ATTEND Advanced Practice Midwife
DX: O34.593 Maternal care for other abnormalities of gravid uterus, third trimester (principal)

== ENCOUNTER → 2020-09-10 | Outpatient (REF) | payer OTHER | LOC: M SFHCWAGY 17:12 | PROVIDERS: ATTEND Advanced Practice Midwife | DX: Z01.419 Encounter for gynecological examination (general) (routine) without abnormal findings (principal); Z12.4 Encounter for screening for malignant neoplasm of cervix ==

== ENCOUNTER → 2021-06-05 | Outpatient (CLI) | payer OTHER ==
[2021-06-05 16:35] LABS: BASO # 0.1 10^3/uL (0.0-0.2); BASO % 0.6 % (0.0-1.0); EOS # 0.1 10^3/uL (0.0-0.5); EOS % 1.7 % (0.0-3.0); HEMOGLOBIN 12.9 g/dl (12.0-15.5); LYMPH # 1.6 10^3/uL (1.5-5.0); LYMPH % 19.9 % (24.0-44.0); MEAN CORPUSCULAR HEMOGLOBIN 31.5 pg (27.0-33.0); MEAN CORPUSCULAR HGB CONC 33.9 g/dl (32.0-36.5); MEAN CORPUSCULAR VOLUME 92.7 fl (80.0-96.0); MONO # 0.5 10^3/uL (0.0-0.8); MONO % 5.7 % (2.0-8.0); NEUTROPHILS # 5.9 10^3/uL (1.5-8.5); NEUTROPHILS % 71.7 % (36.0-66.0); PLATELET COUNT, AUTOMATED 255 10^3/uL (150-450); WHITE BLOOD COUNT 8.2 10^3/uL (4.0-10.0)
[2021-06-05 17:47] LABS: GC DNA AMPLIFICATION NEGATIVE (NEGATIVE)
[2021-06-05 18:00] LABS: HEPATITIS C VIRUS ABY INDEX 0.1 INDEX (<0.8); HIV 1&2 SCREEN CENTAUR NEGATIVE (NEGATIVE)
[2021-06-05 18:36] LABS: TOTAL PROTEIN,RANDOM URINE 5.7 MG/DL (0.0-12.0)
== END ==
LOC: M PLALAB 13:38
PROVIDERS: ATTEND Advanced Practice Midwife
DX: Z34.91 Encounter for supervision of normal pregnancy, unspecified, first trimester (principal)

== ENCOUNTER → 2021-06-29 | Outpatient (CLI) | payer OTHER | LOC: M PLALAB 11:24 | PROVIDERS: ATTEND Specialist | DX: Z34.81 Encounter for supervision of other normal pregnancy, first trimester (principal) ==

== ENCOUNTER → 2021-08-24 | Outpatient (CLI) | payer OTHER | LOC: M WHC 08:56 | PROVIDERS: ATTEND Advanced Practice Midwife | DX: Z36.3 Encounter for antenatal screening for malformations (principal); O35.0XX0 Maternal care for (suspected) central nervous system malformation in fetus, not applicable or unspecified; Z3A.19 19 weeks gestation of pregnancy ==

== ENCOUNTER → 2021-08-25 | Outpatient (CLI) | payer OTHER ==
[2021-08-25 10:54] LABS: FREE T4 1.43 NG/DL (0.76-1.46); THYROID STIMULATING HORMONE 4.83 uIU/ML (0.358-3.740)
== END ==
LOC: M PLALAB 08:42
PROVIDERS: ATTEND Advanced Practice Midwife
DX: O99.280 Endocrine, nutritional and metabolic diseases complicating pregnancy, unspecified trimester (principal)

== ENCOUNTER → 2021-09-16 | Outpatient (CLI) | payer OTHER | LOC: M WHC 08:30 | PROVIDERS: ATTEND Advanced Practice Midwife | DX: Z36.9 Encounter for antenatal screening, unspecified (principal); Z3A.23 23 weeks gestation of pregnancy ==

== ENCOUNTER → 2021-11-03 | Outpatient (CLI) | payer OTHER ==
[2021-11-03 11:08] LABS: FREE T4 1.33 NG/DL (0.76-1.46); THYROID STIMULATING HORMONE 3.07 uIU/ML (0.358-3.740)
== END ==
LOC: M PLALAB 08:28
PROVIDERS: ATTEND Obstetrics & Gynecology
DX: O99.280 Endocrine, nutritional and metabolic diseases complicating pregnancy, unspecified trimester (principal)

== ENCOUNTER → 2021-12-21 | Outpatient (REF) | payer OTHER | LOC: M SFHCWAGY 12:46 | PROVIDERS: ATTEND Obstetrics & Gynecology | DX: O34.593 Maternal care for other abnormalities of gravid uterus, third trimester (principal) ==

== ENCOUNTER → 2022-11-25 | Outpatient (CLI) | payer BC ==
[~2022-11-25] MED LIST changes: +ACET-683 PO; +IBUP80TA PO; +LEVO25TA5 PO
== END ==
LOC: M RAD 11:14
PROVIDERS: ATTEND Internal Medicine
DX: E04.0 Nontoxic diffuse goiter (principal)

== ENCOUNTER → 2023-02-02 | Outpatient (REF) | payer BC ==
[2023-02-02 13:04] LABS: ALBUMIN 4.4 G/DL (3.2-5.2); ALKALINE PHOSPHATASE 56 U/L (46-116); ALT/SGPT 17 U/L (7.0-40); AST/SGOT 16 U/L (<34); BILIRUBIN,TOTAL 0.9 MG/DL (0.3-1.2); BLOOD UREA NITROGEN 16 MG/DL (9-23); CALCIUM LEVEL 9.3 MG/DL (8.5-10.1); CARBON DIOXIDE LEVEL 29 MMOL/L (20-31); CHLORIDE LEVEL 104 MMOL/L (98-107); CHOLESTEROL LEVEL 104 MG/DL (<200); CHOLESTEROL RISK RATIO 1.98 (<5); CREATININE FOR GFR 0.93 MG/DL (0.55-1.30); GLOMERULAR FILTRATION RATE > 60.0 (>60); GLUCOSE, FASTING 81 MG/DL (60-100); HDL CHOLESTEROL 52.4 MG/DL (>40); LDL CHOLESTEROL 39.2 MG/DL (<100); NON-HDL-C 51.6 MG/DL; SODIUM LEVEL 139 MMOL/L (136-145); TOTAL PROTEIN 7.5 G/DL (5.7-8.2); TRIGLYCERIDES LEVEL 62 MG/DL (<150)
[2023-02-02 13:08] LABS: FREE T4 1.79 NG/DL (0.89-1.76)
[2023-02-02 13:10] LABS: BASO # 0.1 10^3/uL (0.0-0.2); BASO % 0.8 % (0.0-1.0); EOS # 0.1 10^3/uL (0.0-0.5); EOS % 1.7 % (0.0-3.0); HEMATOCRIT 43.4 % (36.0-47.0); HEMOGLOBIN 14.7 g/dl (12.0-15.5); LYMPH # 1.9 10^3/uL (1.5-5.0); LYMPH % 30.9 % (24.0-44.0); MEAN CORPUSCULAR HEMOGLOBIN 31.7 pg (27.0-33.0); MEAN CORPUSCULAR HGB CONC 33.9 g/dl (32.0-36.5); MEAN CORPUSCULAR VOLUME 93.7 fl (80.0-96.0); MONO # 0.3 10^3/uL (0.0-0.8); MONO % 5.7 % (2.0-8.0); NEUTROPHILS # 3.6 10^3/uL (1.5-8.5); NEUTROPHILS % 60.6 % (36.0-66.0); PLATELET COUNT, AUTOMATED 296 10^3/uL (150-450); RED BLOOD COUNT 4.63 10^6/uL (4.00-5.40)
== END ==
LOC: M LAB REF 12:38
PROVIDERS: ATTEND Internal Medicine
DX: G43.909 Migraine, unspecified, not intractable, without status migrainosus (principal); E06.3 Autoimmune thyroiditis; N18.31 Chronic kidney disease, stage 3a

== ENCOUNTER → 2023-08-31 | Outpatient (REF) | payer BC, MEDICARE | LOC: M PLALAB 08:33 | PROVIDERS: ATTEND Advanced Practice Midwife | DX: Z01.419 Encounter for gynecological examination (general) (routine) without abnormal findings (principal); Z12.4 Encounter for screening for malignant neoplasm of cervix | CPT/HCPCS: 87624; G0123 ==

== ENCOUNTER → 2023-09-27 | Outpatient (REF) | payer BC, MEDICARE ==
[2023-09-27 17:19] LABS: RSV AMPLIFICATION NEGATIVE (NEGATIVE)
[2023-09-27 17:42] LABS: FREE T4 1.62 NG/DL (0.89-1.76); THYROID STIMULATING HORMONE 4.131 uIU/ML (0.55-4.78)
[2023-09-28 08:33] LABS: ALBUMIN 4.3 G/DL (3.2-5.2); ALKALINE PHOSPHATASE 61 U/L (46-116); ALT/SGPT 15 U/L (7.0-40); AST/SGOT 17 U/L (<34); BILIRUBIN,TOTAL 0.5 MG/DL (0.3-1.2); BLOOD UREA NITROGEN 12 MG/DL (9-23); CALCIUM LEVEL 9.6 MG/DL (8.5-10.1); CARBON DIOXIDE LEVEL 25 MMOL/L (20-31); CHLORIDE LEVEL 105 MMOL/L (98-107); CREATININE FOR GFR 0.88 MG/DL (0.55-1.30); GLOMERULAR FILTRATION RATE > 60.0 (>60); GLUCOSE, FASTING 90 MG/DL (60-100); SODIUM LEVEL 136 MMOL/L (136-145); TOTAL PROTEIN 8.5 G/DL (5.7-8.2)
[2023-09-28 08:58] LABS: MONO SCRN NEGATIVE (NEGATIVE)
== END ==
LOC: M LAB REF 16:22
PROVIDERS: ATTEND Internal Medicine
DX: R05.9 Cough, unspecified (principal); E06.3 Autoimmune thyroiditis

== ENCOUNTER → 2023-10-31 | Outpatient (CLI) | payer BC, MEDICARE | LOC: M WUC 09:23 | PROVIDERS: ATTEND Internal Medicine | DX: M46.1 Sacroiliitis, not elsewhere classified (principal); M54.50 Low back pain, unspecified ==

== ENCOUNTER → 2024-04-16 | Outpatient (CLI) | payer MEDICARE ==
[2024-04-16 10:09] LABS: BLOOD UREA NITROGEN 12 MG/DL (9-23); CALCIUM LEVEL 8.9 MG/DL (8.5-10.1); CARBON DIOXIDE LEVEL 27 MMOL/L (20-31); CHLORIDE LEVEL 111 MMOL/L (98-107); CREATININE FOR GFR 0.85 MG/DL (0.55-1.30); GLOMERULAR FILTRATION RATE > 60.0 (>60); GLUCOSE, FASTING 80 MG/DL (60-100); POTASSIUM SERUM 4.4 MMOL/L (3.5-5.1); SODIUM LEVEL 141 MMOL/L (136-145)
[2024-04-16 10:11] LABS: FREE T4 1.79 NG/DL (0.89-1.76); THYROID STIMULATING HORMONE 1.758 uIU/ML (0.55-4.78)
== END ==
LOC: M LAB 09:21
PROVIDERS: ATTEND Internal Medicine
DX: E06.3 Autoimmune thyroiditis (principal)

== ENCOUNTER → 2025-05-06 | Outpatient (REF) | payer MEDICARE, OTHER ==
[2025-05-06 14:25] LABS: IRON (FE) 84 UG/DL (50-170); PERCENT SATURATION 28.9 % (13.2-45.0)
[2025-05-06 14:27] LABS: VITAMIN B12 LEVEL 869 PG/ML (211-911)
[2025-05-06 14:33] LABS: THYROGLOBULIN ANTIBODY > 500.0 U/ML (<60.0); THYROID PEROXIDASE ANTIBODY > 1300.0 U/ML (<60.0)
== END ==
LOC: M LAB REF 12:17
PROVIDERS: ATTEND Internal Medicine
DX: N18.31 Chronic kidney disease, stage 3a (principal); E06.3 Autoimmune thyroiditis; M25.50 Pain in unspecified joint; R00.2 Palpitations; R53.83 Other fatigue